=== PATIENT | female | born 1985 | race Two or more races ===

== ENCOUNTER 2019-08-20 23:07 | Emergency (ER) | payer OTHER ==
[2019-08-20 23:42] LABS: ABS Lymphocytes 1.5 10^3/ul (1.0-4.8); ABS Monocytes 0.5 10^3/ul (0-0.8); ABS Neutrophils 8.4 10^3/ul (1.5-7.7); Eosinophil % 0.4 %; Hematocrit 41 % (35-47); Hemoglobin 13.9 g/dL (12.0-16.0); Lymphocyte % 14.6 %; Mean Corpuscular HGB Conc 34 g/dL (31-36); Mean Corpuscular Hemoglobin 31 pg (27-31); Mean Corpuscular Volume 91 fL (80-97); Mean Platelet Volume 9.1 fL (7.4-10.4); Platelet Count 194 10^3/uL (150-450); Red Blood Count 4.46 10^6 /uL (3.70-4.87); Red Cell Distribution Width 13 % (10-15); White Blood Count 10.5 10^3/uL (3.5-10.8)
[2019-08-21 00:01] LABS: ALT 19 U/L (7-52); AST 16 U/L (13-39); Albumin 4.7 g/dL (3.2-5.2); Albumin/Globulin Ratio 1.6 (1-3); Alkaline Phosphatase 60 U/L (34-104); Anion Gap 10 mmol/L (2-11); BUN/Creatinine Ratio 13.8 (8-20); Blood Urea Nitrogen 11 mg/dL (6-24); CO2 Carbon Dioxide 24 mmol/L (22-32); Calcium 9.8 mg/dL (8.6-10.3); Chloride 102 mmol/L (101-111); EGFR Non-African American 82.6 (>60); Globulin 2.9 g/dL (2-4); Glucose 103 mg/dL (70-100); Potassium 3.9 mmol/L (3.5-5.0); Sodium 136 mmol/L (135-145); Total Protein 7.6 g/dL (6.4-8.9)
[2019-08-21 00:07] LABS: HCG Pregnancy < 0.60 mIU/mL
[2019-08-21] MEDS ORDERED: Ibuprofen TAB* 400 MG PO ONE (00:16)
[2019-08-21 00:27] LABS: Acetaminophen < 15 mcg/mL; Alcohol < 10 mg/dL (<10); Salicylate < 2.50 mg/dL (<30)
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
[2019-08-21] MEDS ORDERED: Levothyroxine TAB* 50 MCG TAB PO SCH (06:00)
[2019-08-21 06:06] VITALS: BP 113/84
== END 2019-08-21 05:30 | disposition home or self-care (01) ==
LOC: ED 23:07
DX: F32.9 Major depressive disorder, single episode, unspecified (principal); F41.9 Anxiety disorder, unspecified; E03.9 Hypothyroidism, unspecified; Z79.890 Hormone replacement therapy
CPT/HCPCS: 36415; 80053; 80320; 80329; 84443; 84702; 85025; 99284; A9270-GY; G0480